=== PATIENT | male | born 1985 | race Two or more races ===

== ENCOUNTER 2020-04-24 21:45 | Emergency (ER) | payer OTHER ==
[~2020-04-24] VITALS: Ht 172.7 cm; Wt 90.7 kg
[2020-04-24 21:49] VITALS: BP 132/88
--- NOTE | 2020-04-24 21:49 | NUR ---
ED Nurse Note: pt AURELIO SHELL [id number] per report pt c/o anxiety after smoking marijuana. On arrival pt showing flight of ideas, paranoid delusions, severe anxiety, pt uncooperative. Pt refuses to answer questions at this time. Pt does report he currently lives with his aunt.
[2020-04-24] MEDS ORDERED: LORazepam 1mg tab ORAL ONE (22:15)
[2020-04-24] MEDS ORDERED: ATIVAN1 MG ORAL (22:16)
[2020-04-24 22:22] VITALS: BP 121/74
--- NOTE | 2020-04-24 22:22 | NUR ---
ER DISCHARGE NOTE: Patient is cleared to be discharged per ERMD, pt is aox4, on room air, with stable vital signs. pt was given dc and paper prescription with instruction to f/u with pmd and psychiatrist. pt was able to verbalize understanding, pt id band removed. pt is able to ambulate with steady gait. pt took all belongings.
--- NOTE | 2020-04-25 00:08 | Emergency Room Report ---
History of Present Illness General Chief Complaint: Substance Abuse Present Illness HPI 34-year-old male here with anxiety after smoking marijuana. The patient says that he smoked for 1 approximately 1 hour prior to come to the emergency department. He said that he felt palpitations and "I was really nervous being outside so I called 911." Patient denies homicidal or suicidal ideation or hallucinations. Allergies: Coded Allergies: No Known Allergies (Unverified , 04/24/20) COVID-19 Screening Contact w/high risk pt: No Experienced COVID-19 symptoms?: No COVID-19 Testing performed LEAD NETWORK ARCHITECT: No Nursing Documentation-[facility] History Of Psychiatric Problem: Yes Review of Systems All Other Systems: negative except mentioned in HPI Physical Exam Vital Signs Date Time Temp Pulse Resp B/P (MAP) Pulse Ox O2 Delivery O2 Flow Rate FiO2 04/24/20 21:41 98.8 130 18 132/88 (103) 98 Room Air Sp02 EP Interpretation: reviewed, normal General Appearance: no apparent distress, alert, non-toxic Head: normocephalic, atraumatic Eyes: bilateral eye normal inspection, bilateral eye PERRL, bilateral eye other - Conjunctival injection bilaterally ENT: hearing grossly normal, normal pharynx, no angioedema, normal voice Neck: full range of motion, supple/symm/no masses Respiratory: chest non-tender, lungs clear, normal breath sounds, speaking full sentences Cardiovascular #1: regular rate, rhythm, no edema Cardiovascular #2: 2+ carotid (R), 2+ carotid (L), 2+ radial (R), 2+ radial (L), 2+ dorsalis pedis (R), 2+ dorsalis pedis (L) Gastrointestinal: normal bowel sounds, non tender, soft, non-distended, no guarding, no rebound Rectal: deferred Genitourinary: normal inspection, no CVA tenderness Musculoskeletal: back normal, normal range of motion, gait/station normal, non- tender Neurologic: alert, motor strength/tone normal, oriented x3, sensory intact, responsive, speech normal Psychiatric: judgement/insight normal, memory normal, mood/affect normal, no suicidal/homicidal ideation, other - Loud, talkative, disruptive but is redirectable Lymphatic: no adenopathy Medical Decision Making Diagnostic Impression: Primary Impression: Substance abuse Additional Impression: Anxiety ER Course 34-year-old male here with marijuana intoxication and anxiety. Patient denied homicidal or suicidal ideation or hallucinations. He was loud and disruptive in the emergency department demanding Ativan. He was given 2 mg of Ativan p.o. with resolution of his anxiety. Given prescription for 5 tablets of 1 mg Ativan to use as needed nightly for sleep and anxiety. He was clinically sober and ambulating throughout the emergency department and tolerating p.o. without difficulty. He called a taxi. Discharged in stable condition. Last Vital Signs Date Time Temp Pulse Resp B/P (MAP) Pulse Ox O2 Delivery O2 Flow Rate FiO2 04/24/20 22:22 98.1 94 16 121/74 100 Room Air Disposition: HOME, SELF-CARE Condition: Stable Scripts Lorazepam* (ATIVAN*) 1 Mg Tablet 1 MG ORAL BEDTIME, #5 TAB Prov: Tomi Holm M.D. 04/24/20 Referrals: [facility],REFERRING (PCP) [facility] ER - Peds ER - [facility] Intake Hotline - [facility] - [facility] Patient Instructions: Cannabis Use Disorder Tomi Holm M.D. Apr 25, 2020 00:08
== END 2020-04-24 22:22 | disposition home or self-care (01) ==
LOC: EDBD 21:45 → EMR 22:00
DX: F41.9 Anxiety disorder, unspecified (principal); F12.10 Cannabis abuse, uncomplicated
CPT/HCPCS: 99282